=== PATIENT | female | born 1955 | race African-American/Black ===

== ENCOUNTER 2017-10-25 08:12 | Emergency (ER) | payer BC ==
[~2017-10-25] VITALS: Ht 160 cm; Wt 81.6 kg
--- NOTE | 2017-10-25 08:17 | PHYS DOC ---
Adult General Chief Complaint Chief Complaint: COUGH HPI HPI Patient is a 62 year old -[place] female who presents with productive cough and left-sided rib pain with coughing. She states last week she had a cold and then about 2 days ago she started this productive cough. She states her chest only hurts when she is coughing. She denies any shortness of breath, she does smoke a pack per day for the last 30 years. She states she has a history of high blood pressure is was no medicines but stopped taking about a month ago. She states it made her eyes blurry and watery so she stopped taking them and her blurriness and watering of her eyes stopped. She does not have a primary care physician. She is worried that she might have pneumonia and wants to be evaluated. She denies any fevers chills nausea vomiting. Review of Systems Review of Systems Constitutional: Denies fever or chills [] Eyes: Denies change in visual acuity, redness, or eye pain [] HENT: Denies nasal congestion or sore throat [] Respiratory: Denies cough or shortness of breath [] Cardiovascular: No additional information not addressed in HPI [] GI: Denies abdominal pain, nausea, vomiting, bloody stools or diarrhea [] : Denies dysuria or hematuria [] Musculoskeletal: Denies back pain or joint pain [] Integument: Denies rash or skin lesions [] Neurologic: Denies headache, focal weakness or sensory changes [] Endocrine: Denies polyuria or polydipsia [] All other systems were reviewed and found to be within normal limits, except as documented in this note. Allergies Allergies Allergies Coded Allergies Type Severity Reaction Last Updated Verified No Known Drug Allergies 10/25/17 No Physical Exam Physical Exam Constitutional: Well developed, well nourished, no acute distress, non-toxic appearance. [] HENT: Normocephalic, atraumatic, bilateral external ears normal, oropharynx moist, no oral exudates, nose normal. [] Eyes: PERRLA, EOMI, conjunctiva normal, no discharge. [] Neck: Normal range of motion, no tenderness, supple, no stridor. [] Cardiovascular:Heart rate regular rhythm, no murmur [] Lungs & Thorax: Bilateral breath sounds clear to auscultation, tender palpation of the left lateral ribs under her axilla Abdomen: Bowel sounds normal, soft, no tenderness, no masses, no pulsatile masses. [] Skin: Warm, dry, no erythema, no rash. [] Back: No tenderness, no CVA tenderness. [] Extremities: No tenderness, no cyanosis, no clubbing, ROM intact, no edema. [] Neurologic: Alert and oriented X 3, normal motor function, normal sensory function, no focal deficits noted. [] Psychologic: Affect normal, judgement normal, mood normal. [] Current Patient Data Vital Signs Vital Signs Date Time Temp Pulse Resp B/P (MAP) Pulse Ox O2 Delivery O2 Flow Rate FiO2 10/25/17 09:21 62 22 182/79 (113) 98 Room Air 10/25/17 08:25 97.8 97.8 Lab Values Laboratory Tests Test 10/25/17 08:45 10/25/17 09:00 White Blood Count 9.1 x10^3/uL (4.0-11.0) Red Blood Count 4.66 x10^6/uL (3.50-5.40) Hemoglobin 12.9 g/dL (12.0-15.5) Hematocrit 39.9 % (36.0-47.0) Mean Corpuscular Volume 85 fL (79-100) Mean Corpuscular Hemoglobin 28 pg (25-35) Mean Corpuscular Hemoglobin Concent 32 g/dL (31-37) Red Cell Distribution Width 14.8 % (11.5-14.5) H Platelet Count 205 x10^3/uL (140-400) Neutrophils (%) (Auto) 58 % (31-73) Lymphocytes (%) (Auto) 33 % (24-48) Monocytes (%) (Auto) 6 % (0-9) Eosinophils (%) (Auto) 2 % (0-3) Basophils (%) (Auto) 1 % (0-3) Neutrophils # (Auto) 5.3 x10^3uL (1.8-7.7) Lymphocytes # (Auto) 3.0 x10^3/uL (1.0-4.8) Monocytes # (Auto) 0.6 x10^3/uL (0.0-1.1) Eosinophils # (Auto) 0.2 x10^3/uL (0.0-0.7) Basophils # (Auto) 0.1 x10^3/uL (0.0-0.2) Sodium Level 141 mmol/L (136-145) Potassium Level 4.2 mmol/L (3.5-5.1) Chloride Level 105 mmol/L (98-107) Carbon Dioxide Level 26 mmol/L (21-32) Anion Gap 10 (6-14) Blood Urea Nitrogen 17 mg/dL (7-20) Creatinine 0.7 mg/dL (0.6-1.0) Estimated GFR (Cockcroft-Gault) 84.8 Glucose Level 110 mg/dL (70-99) H Calcium Level 8.6 mg/dL (8.5-10.1) Magnesium Level 1.7 mg/dL (1.8-2.4) L Total Bilirubin 0.3 mg/dL (0.2-1.0) Direct Bilirubin 0.1 mg/dL (0.0-0.2) Aspartate Amino Transferase (AST) 20 U/L (15-37) Alanine Aminotransferase (ALT) 23 U/L (14-59) Alkaline Phosphatase 64 U/L (46-116) Creatine Kinase 91 U/L (26-192) Creatine Kinase MB (Mass) 1.4 ng/mL (0.0-3.6) Creatine Kinase MB Relative Index 1.5 % (0-4) Troponin I Quantitative < 0.017 ng/mL (0.000-0.055) KI-Xou-E-Type Natriuretic Peptide 150 pg/mL (0-124) H Total Protein 8.2 g/dL (6.4-8.2) Albumin 3.9 g/dL (3.4-5.0) Thyroid Stimulating Hormone (TSH) 0.966 uIU/mL (0.358-3.74) Urine Collection Type Unknown Urine Color Yellow Urine Clarity Clear Urine pH 5.5 Urine Specific [place] 1.020 Urine Protein Negative mg/dL (NEG-TRACE) Urine Glucose (UA) Negative mg/dL (NEG) Urine Ketones (Stick) Negative mg/dL (NEG) Urine Blood Negative (NEG) Urine Nitrite Negative (NEG) Urine Bilirubin Negative (NEG) Urine Urobilinogen Dipstick 0.2 mg/dL (0.2 mg/dL) Urine Leukocyte Esterase Negative (NEG) Urine RBC 0 /HPF (0-2) Urine WBC 0 /HPF (0-4) Urine Squamous Epithelial Cells Few /LPF Urine Bacteria 0 /HPF (0-FEW) Urine Mucus Slight /LPF Urine Opiates Screen Neg (NEG) Urine Methadone Screen Neg (NEG) Urine Barbiturates Neg (NEG) Urine Phencyclidine Screen Neg (NEG) Urine Amphetamine/Methamphetamine Neg (NEG) Urine Benzodiazepines Screen Neg (NEG) Urine Cocaine Screen Neg (NEG) Urine Cannabinoids Screen Neg (NEG) Urine Ethyl Alcohol Neg (NEG) Laboratory Tests 10/25/17 08:45 Laboratory Tests 10/25/17 08:45 EKG EKG EKG shows sinus rhythm with a rate of [address] elevations or concerning T-wave inversions, left axis deviation, QTC 413, as interpreted by me. Radiology/Procedures Radiology/Procedures [facility] [address] [place] [address] IMAGING REPORT Signed PATIENT: BELGICA WHITE ACCOUNT: [id number] : 1955 LOCATION: ER AGE: 62 SEX: F EXAM STATUS: PRE ER ORD. PHYSICIAN: MADDISON BLANKENSHIP MD REASON: cough PROCEDURE: CHEST PA & LATERAL PA and lateral chest radiographs 10/25/2017 Clinical history: Cough for 2 days with left-sided chest pain. PA and lateral digital radiographs of the chest were obtained. No previous studies are available for comparison. The cardiac silhouette is borderline enlarged. The thoracic aorta is mildly tortuous. No acute pulmonary infiltrate is seen. No pleural effusion or pneumothorax is noted. Degenerative changes are seen involving the thoracic spine. Impression: No acute pulmonary infiltrate is seen. DICTATED and SIGNED BY: CHIQUIS PANDA MD DATE: 10/25/17 0900 CC: MADDISON BLANKENSHIP MD ~ Impressions: Hypertension Bronchitis Tobacco abuse Course & Med Decision Making Course & Med Decision Making Pertinent Labs and Imaging studies reviewed. (See chart for details) Her troponin, EKG, chest x-ray all negative. Her pains been constant for several days and it is reproducible. Her EKG and troponins are negative. We'll discharge home with a Z-Boom for bronchitis and encouraged to stop smoking. For her blood pressure we'll restart her on Norvasc 5 mg 1 tab daily. She is to follow-up with primary care. Return precautions given. She is agreeable to the plan and being discharged stable condition this time. Dragon Disclaimer Dragon Disclaimer This electronic medical record was generated, in whole or in part, using a voice recognition dictation system. Departure Departure Impression: Primary Impression: Hypertension Additional Impression: Bronchitis Disposition: HOME, SELF-CARE Condition: STABLE Patient Instructions: Bronchitis Additional Instructions: Your blood pressure is came down to the 180s systolic. Your being discharged home with blood pressure medicines: Norvasc. You can purchases for $4 at [employer]. Please follow instructions on the label. Your chest x-ray did not show any signs of infection. You are being discharged with antibiotic since she do smoke you likely have bronchitis. You'll need take antibiotic for the next 5 days. Please follow the instructions on the label. Return back to ER for chest pain, shortness of breath, fevers, or other concerns. Scripts Azithromycin (ZITHROMAX) 250 Mg Tablet 1 PKG PO UD, #1 PKG Prov: MADDISON BLANKENSHIP MD 10/25/17 Amlodipine Besylate (NORVASC) 5 Mg Tablet 1 TAB PO DAILY, #30 TAB Prov: MADDISON BLANKENSHIP MD 10/25/17 Problem Qualifiers Primary Impression: Hypertension Hypertension type: essential hypertension Qualified Codes: I10 - Essential ( primary) hypertension MADDISON BLANKENSHIP MD Oct 25, 2017 08:17
[2017-10-25 08:59] LABS: BASO # 0.1 x10^3/uL (0.0-0.2); BASO % 1 % (0-3); EOS % 2 % (0-3); HEMATOCRIT 39.9 % (36.0-47.0); HEMOGLOBIN 12.9 g/dL (12.0-15.5); LYMPH % 33 % (24-48); MEAN CORPUSCULAR HEMOGLOBIN 28 pg (25-35); MEAN CORPUSCULAR HGB CONC 32 g/dL (31-37); MEAN CORPUSCULAR VOLUME 85 fL (79-100); MONO % 6 % (0-9); NEUT % 58 % (31-73); PLATELET COUNT 205 x10^3/uL (140-400); RED BLOOD COUNT 4.66 x10^6/uL (3.50-5.40); RED CELL DISTRIBUTION WIDTH 14.8 % (11.5-14.5); WHITE BLOOD COUNT 9.1 x10^3/uL (4.0-11.0)
--- NOTE | 2017-10-25 09:05 | RAD ---
PA and lateral chest radiographs 10/25/2017 Clinical history: Cough for 2 days with left-sided chest pain. PA and lateral digital radiographs of the chest were obtained. No previous studies are available for comparison. The cardiac silhouette is borderline enlarged. The thoracic aorta is mildly tortuous. No acute pulmonary infiltrate is seen. No pleural effusion or pneumothorax is noted. Degenerative changes are seen involving the thoracic spine. Impression: No acute pulmonary infiltrate is seen.
[2017-10-25 09:14] LABS: CALCIUM 8.6 mg/dL (8.5-10.1); CREATININE 0.7 mg/dL (0.6-1.0); GFR 84.8; POTASSIUM 4.2 mmol/L (3.5-5.1)
[2017-10-25 09:14] LABS: BILIRUBIN,URINE NEGATIVE (NEG); GLUCOSE,URINE NEGATIVE (NEG); NITRITE,URINE NEGATIVE (NEG); PH,URINE 5.5; PROTEIN,URINE NEGATIVE (NEG-TRACE); UROBILINOGEN,URINE 0.2 mg/dL (0.2 mg/dL)
[2017-10-25 09:20] LABS: ALBUMIN 3.9 g/dL (3.4-5.0); DIRECT BILIRUBIN 0.1 mg/dL (0.0-0.2); MAGNESIUM 1.7 mg/dL (1.8-2.4); TOTAL BILIRUBIN 0.3 mg/dL (0.2-1.0); TOTAL PROTEIN 8.2 g/dL (6.4-8.2)
[2017-10-25 09:22] LABS: BARBITURATES NEG (NEG); BENZODIAZEPINES NEG (NEG); CANNABINOIDS NEG (NEG); COCAINE NEG (NEG); METHADONE NEG (NEG); OPIATES NEG (NEG); PHENCYCLIDINE NEG (NEG)
[2017-10-25 09:26] LABS: CKMB MASS 1.4 ng/mL (0.0-3.6)
[2017-10-25 09:38] LABS: BACTERIA,URINE 0 /HPF (0-FEW); RBC,URINE 0 /HPF (0-2); SQUAMOUS EPITHELIAL CELL,UR FEW /LPF; WBC,URINE 0 /HPF (0-4)
[2017-10-25 09:51] VITALS: BP 194/90
[2017-10-25] MEDS ORDERED: AMLO5TAB4 PO (10:00)
[2017-10-25] MEDS ORDERED: AZIT250T PO (10:00)
--- NOTE | 2017-10-25 14:24 | EKG ---
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
== END 2017-10-25 10:10 | disposition home or self-care (01) ==
LOC: ER 08:12
DX: I10 Essential (primary) hypertension (principal); J40 Bronchitis, not specified as acute or chronic; F17.200 Nicotine dependence, unspecified, uncomplicated
CPT/HCPCS: 36415; 71020; 80048; 80076; 80307; 81001; 82553; 83735; 83880; 84443; 84484; 85025; 93005; 99285-25; G0479

== ENCOUNTER → 2020-01-05 | Day surgery (SDC) | payer BC, OTHER ==
[~2020-01-05] MED LIST: AMLO5TAB4 PO; ASPI81TA59 PO; ATOR40TA59 PO; AZIT250T PO; BISO5TAB8 PO; FURO40TA4 PO; IV RINGERS,LACTATED 1000ML 1,000 ML IV ONE; IV RINGERS,LACTATED 1000ML 1,000 ML IV SCH; LIDOCAINE 2% PF 5 ML VIAL. ONE; LISI10TA2 PO; POTA20TA83 PO; PROPOFOL 40 ML IV ONE
[2020-01-05 09:35] VITALS: BP 124/76
--- NOTE | 2020-01-08 16:06 | PATHOLOGY ---
[facility] Accession Number: [id number] . 01 Material submitted: . PART A: colon - DESCENDING COLON POLYP BX. Modifiers: descending PART B: sigmoid colon - SIGMOID COLON POLYP . 01 Clinician provided ICD-10: y . 01 Clinical history: . CRC screen . 02 Diagnosis: A. Colon biopsy, descending colon polyp: - Tubular adenoma. . B. Colon biopsy, sigmoid colon polyp: - Tubular adenoma. . (JPM:anita; 01/08/2020) S 01/08/2020 0857 Local . 02 Comment: There is no high grade dysplasia or evidence of malignancy. . 02 Electronically signed: . Ranjith Louis MD, Pathologist NPI- [id number] . 01 Gross description: . A. The specimen is received in formalin, labeled "Lakesha Simran, descending colon polyp biopsy". Received is a segment of pale hassan soft tissue measuring 0.3 cm in maximum dimensions. The specimen is submitted entirely in cassette A1. . B. The specimen is received in formalin, labeled "Lakesha Simran, sigmoid polyp". Received is a segment of pale hassan soft tissue measuring 0.7 cm in maximum dimensions. The surgical margin is inked and the segment is bisected. The specimen is submitted entirely in cassette B1. (CAA; 01/05/2020) QAC/QAC 01/05/2020 1821 Local . 02 Pathologist provided ICD-10: D12.4, D12.5 . 02 CPT . 428456, 644282 Specimen Comment: A courtesy copy of this report has been sent to [phone], [phone] Specimen Comment: [id number] Specimen Comment: Report sent to / DR MANJARREZ Performed at: 01 [facility] [address], [place], [place] [id number] MD Tay Ovalle MD Phone: [phone] Performed at: 02 [facility] [address] [place], [place] [id number] MD Ranjith Louis MD Phone: [phone]
== END ==
LOC: ENDOS 07:58
PROVIDERS: ATTEND Internal Medicine Gastroenterology
DX: Z12.11 Encounter for screening for malignant neoplasm of colon (principal); D12.4 Benign neoplasm of descending colon; D12.5 Benign neoplasm of sigmoid colon; K64.0 First degree hemorrhoids; I10 Essential (primary) hypertension; I25.2 Old myocardial infarction; F15.90 Other stimulant use, unspecified, uncomplicated; Z87.891 Personal history of nicotine dependence; Z79.82 Long term (current) use of aspirin
CPT/HCPCS: 45380; 45385; J2001; J2704; 45384